=== PATIENT | male | born 1960 | race Caucasian/White ===

== ENCOUNTER 2024-04-20 20:36 | Emergency (ER) | payer MEDICARE ==
[~2024-04-20] VITALS: Ht 162.6 cm; Wt 82.6 kg
[2024-04-20 20:58] VITALS: BP 134/85; PULSE 74; RESP 16; TEMP 96.6; O2SAT 97
[2024-04-20] MEDS ORDERED: CARB15DR72 OT (22:47)
== END 2024-04-20 23:14 | disposition home or self-care (01) ==
LOC: MED 20:36
DX: H61.22 Impacted cerumen, left ear (principal); E11.9 Type 2 diabetes mellitus without complications; I10 Essential (primary) hypertension; Z79.899 Other long term (current) drug therapy
CPT/HCPCS: 99282